=== PATIENT | female | born 2000 | race Caucasian/White ===

== ENCOUNTER → 2019-08-17 | Outpatient (CLI) | payer OTHER | END | disposition home or self-care (01) | LOC: LAB SHORT 10:59 → LAB EV 10:59 | DX: N39.0 Urinary tract infection, site not specified (principal) | CPT/HCPCS: 87077; 87086; 87186 ==

== ENCOUNTER 2019-08-28 14:41 | Emergency (ER) | payer OTHER ==
[~2019-08-28] VITALS: Ht 162.6 cm; Wt 54.4 kg
[2019-08-28 15:22] LABS: BASOPHILS ABSOLUTE AUTO 0.06 K/mm3 (0.00-0.23); BASOPHILS PERCENT AUTO 0 % (0-2); EOSINOPHILS PERCENT AUTO 0 % (0-6); IMMATURE GRAN ABSOLUTE AUTO 0.05 K/mm3 (0.00-0.10); IMMATURE GRAN PERCENT AUTO 0 % (0-1); LYMPHOCYTES ABSOLUTE AUTO 1.02 K/mm3 (0.84-5.20); LYMPHOCYTES PERCENT AUTO 8 % (21-46); MONOCYTES ABSOLUTE AUTO 0.52 K/mm3 (0.16-1.47); MONOCYTES PERCENT AUTO 4 % (4-13); Mean Corpuscular HGB 31.7 pg (26.0-34.0); Mean Corpuscular HGB Conc 32.6 g/dL (31.5-36.5); Mean Corpuscular Volume 97 fL (80-100); Mean Platelet Volume 8.6 fL (9.1-12.4); NEUTROPHILS ABSOLUTE AUTO 11.93 K/mm3 (1.96-9.15); NEUTROPHILS PERCENT AUTO 88 % (41-73); Platelet Count 349 K/mm3 (150-400); RDW Coefficient Variation 12.2 % (11.7-14.2); RDW Standard Deviation 43.9 fL (35.1-46.3); Red Blood Cell Count 4.42 M/mm3 (3.80-5.20); White Blood Cell Count 13.58 K/mm3 (4.00-11.30)
[2019-08-28 15:46] LABS: Alanine Aminotransfer (ALT/SGP 31 U/L (12-78); Albumin, Blood 4.5 g/dL (3.4-5.0); Albumin/Globulin Ratio 1.2 (0.8-1.8); Alk Phos 66 U/L (45-116); Anion Gap 17 mmol/L (6-16); Aspartate Aminotrans (AST/SGOT 30 U/L (12-37); Bilirubin, Total 0.5 mg/dL (0.1-1.0); Blood Urea Nitrogen 11 mg/dL (8-21); Bun/Creatinine Ratio 19.1 (12.0-20.0); CO2, Blood 15 mmol/L (21-32); Calcium, Blood 8.8 mg/dL (8.5-10.1); Chloride, Blood 102 mmol/L (98-108); Creatinine, Blood 0.58 mg/dL (0.40-1.00); Globulin, Blood 3.9 g/dL (2.2-4.0); Glomerular Filtration Rate >60 (60-); Glucose, Blood 67 mg/dL (70-99); Potassium, Blood 4.1 mmol/L (3.5-5.5); Sodium, Blood 134 mmol/L (136-145); Total Protein, Blood 8.4 g/dL (6.4-8.2)
[2019-08-28 15:56] LABS: Beta HCG, Quantitative, Serum 20851 mIU/mL (0-3)
== END 2019-08-28 18:12 | disposition home or self-care (01) ==
LOC: ER 14:41
PROVIDERS: Physician Assistant
DX: O21.8 Other vomiting complicating pregnancy (principal); O99.311 Alcohol use complicating pregnancy, first trimester; F10.10 Alcohol abuse, uncomplicated; Y90.4 Blood alcohol level of 80-99 mg/100 ml; O99.331 Smoking (tobacco) complicating pregnancy, first trimester; F17.200 Nicotine dependence, unspecified, uncomplicated; O99.341 Other mental disorders complicating pregnancy, first trimester; F41.9 Anxiety disorder, unspecified; Z3A.01 Less than 8 weeks gestation of pregnancy
CPT/HCPCS: 36415; 76801; 76817; 80053; 84702; 85025; 86900; 86901; 96374; 99285-25; G0480; J7030

== ENCOUNTER 2020-09-26 08:44 | Emergency (ER) | payer OTHER ==
[~2020-09-26] VITALS: Ht 162.6 cm; Wt 52.2 kg
[2020-09-26 09:10] LABS: Source, Urine Clean Catch
[2020-09-26 09:17] LABS: Bilirubin, Urine Neg (Neg); Blood, Urine 2+ (Neg); Glucose Qualitative, Urine Neg (Neg); Ketones, Urine 2+ (Neg); Leukocyte Esterase, Urine 1+ (Neg); Nitrite, Urine Neg (Neg); Protein, Urine 3+ (Neg); Specific Gravity, Urine 1.025 (1.003-1.022); Urobilinogen, Urine NORM (Normal)
[2020-09-26 09:24] LABS: Appearance, Urine Hazy (Clear); Color, Urine Yellow (P-Yellow)
[2020-09-26 09:24] LABS: BASOPHILS ABSOLUTE AUTO 0.07 K/mm3 (0.00-0.23); BASOPHILS PERCENT AUTO 1 % (0-2); EOSINOPHILS ABSOLUTE AUTO 0.29 K/mm3 (0.00-0.68); EOSINOPHILS PERCENT AUTO 3 % (0-6); Hematocrit 42.6 % (33.0-51.0); Hemoglobin 14.7 g/dL (11.5-16.0); IMMATURE GRAN ABSOLUTE AUTO 0.01 K/mm3 (0.00-0.10); IMMATURE GRAN PERCENT AUTO 0 % (0-1); LYMPHOCYTES PERCENT AUTO 25 % (21-46); MONOCYTES ABSOLUTE AUTO 1.11 K/mm3 (0.16-1.47); MONOCYTES PERCENT AUTO 11 % (4-13); Mean Corpuscular HGB Conc 34.5 g/dL (31.5-36.5); Mean Corpuscular Volume 96 fL (80-100); Mean Platelet Volume 8.7 fL (9.1-12.4); NEUTROPHILS ABSOLUTE AUTO 5.87 K/mm3 (1.96-9.15); NEUTROPHILS PERCENT AUTO 60 % (41-73); Platelet Count 266 K/mm3 (150-400); RDW Coefficient Variation 11.8 % (11.7-14.2); RDW Standard Deviation 41.5 fL (35.1-46.3); Red Blood Cell Count 4.45 M/mm3 (3.80-5.20); White Blood Cell Count 9.75 K/mm3 (4.00-11.30)
[2020-09-26 09:25] LABS: Mucus Mod (0-Heavy)
[2020-09-26 09:26] LABS: Bacteria Mod /hpf; Squamous Epithelial Cells Many /hpf (Few)
[2020-09-26 09:50] LABS: Alanine Aminotransfer (ALT/SGP 87 U/L (12-78); Albumin, Blood 4.8 g/dL (3.4-5.0); Albumin/Globulin Ratio 1.3 (0.8-1.8); Alk Phos 62 U/L (50-136); Anion Gap 11 mmol/L (6-16); Aspartate Aminotrans (AST/SGOT 104 U/L (12-37); Bilirubin, Total 1.1 mg/dL (0.1-1.0); Blood Urea Nitrogen 10 mg/dL (8-24); Bun/Creatinine Ratio 16.5 (12.0-20.0); CO2, Blood 23 mmol/L (21-32); Calcium, Blood 9.2 mg/dL (8.5-10.1); Chloride, Blood 106 mmol/L (98-108); Creatinine, Blood 0.61 mg/dL (0.40-1.00); Globulin, Blood 3.7 g/dL (2.2-4.0); Glomerular Filtration Rate >60 (60-); Glucose, Blood 82 mg/dL (70-99); Potassium, Blood 3.8 mmol/L (3.5-5.5); Sodium, Blood 140 mmol/L (136-145); Total Protein, Blood 8.5 g/dL (6.4-8.2)
[2020-09-26] MEDS ORDERED: Norco 5-325 Ta1 EACH PO (11:04)
[2020-09-26] MEDS ORDERED: CEPH500 PO (11:04)
== END 2020-09-26 11:19 | disposition home or self-care (01) ==
LOC: ER 08:44
PROVIDERS: Emergency Medicine; Physician Assistant
DX: N39.0 Urinary tract infection, site not specified (principal); F17.210 Nicotine dependence, cigarettes, uncomplicated
CPT/HCPCS: 36415; 74176; 80053; 81001; 81025; 85025; 87086; 96374; 96375; 99284-25; J1885; J2405

== ENCOUNTER 2020-11-29 06:19 | Emergency (ER) | payer OTHER ==
[~2020-11-29] VITALS: Ht 167.6 cm; Wt 54.4 kg
[~2020-11-29 06:19] MED LIST: CEPH500 PO; Norco 5-325 Ta1 EACH PO
== END 2020-11-29 07:00 | disposition left against medical advice (07) ==
LOC: ER 06:19
DX: R10.9 Unspecified abdominal pain (principal); Z53.21 Procedure and treatment not carried out due to patient leaving prior to being seen by health care provider

== ENCOUNTER 2020-12-02 06:03 | Emergency (ER) | payer OTHER ==
[~2020-12-02] VITALS: Ht 162.6 cm; Wt 54.4 kg
[2020-12-02] MEDS ORDERED: Naltrexone HCl50 MG PO (06:14)
[2020-12-02] MEDS ORDERED: PROZAC20 M5 PO (06:14)
[2020-12-02 07:02] LABS: BASOPHILS ABSOLUTE AUTO 0.05 K/mm3 (0.00-0.23); BASOPHILS PERCENT AUTO 1 % (0-2); EOSINOPHILS ABSOLUTE AUTO 0.22 K/mm3 (0.00-0.68); EOSINOPHILS PERCENT AUTO 3 % (0-6); Hemoglobin 12.4 g/dL (11.5-16.0); IMMATURE GRAN ABSOLUTE AUTO 0.02 K/mm3 (0.00-0.10); IMMATURE GRAN PERCENT AUTO 0 % (0-1); LYMPHOCYTES ABSOLUTE AUTO 1.63 K/mm3 (0.84-5.20); LYMPHOCYTES PERCENT AUTO 24 % (21-46); MONOCYTES ABSOLUTE AUTO 1.04 K/mm3 (0.16-1.47); MONOCYTES PERCENT AUTO 15 % (4-13); Mean Corpuscular HGB 33.7 pg (26.0-34.0); Mean Corpuscular HGB Conc 34.4 g/dL (31.5-36.5); Mean Corpuscular Volume 98 fL (80-100); NEUTROPHILS ABSOLUTE AUTO 3.89 K/mm3 (1.96-9.15); NEUTROPHILS PERCENT AUTO 57 % (41-73); Platelet Count 123 K/mm3 (150-400); RDW Coefficient Variation 11.8 % (11.7-14.2); RDW Standard Deviation 42.5 fL (35.1-46.3); Red Blood Cell Count 3.68 M/mm3 (3.80-5.20); White Blood Cell Count 6.85 K/mm3 (4.00-11.30)
[2020-12-02 07:31] LABS: Alanine Aminotransfer (ALT/SGP 189 U/L (12-78); Albumin, Blood 3.9 g/dL (3.4-5.0); Albumin/Globulin Ratio 1.1 (0.8-1.8); Alk Phos 58 U/L (50-136); Anion Gap 9 mmol/L (6-16); Aspartate Aminotrans (AST/SGOT 235 U/L (12-37); Bilirubin, Total 0.3 mg/dL (0.1-1.0); Blood Urea Nitrogen 11 mg/dL (8-24); Bun/Creatinine Ratio 14.3 (12.0-20.0); CO2, Blood 25 mmol/L (21-32); Calcium, Blood 9.3 mg/dL (8.5-10.1); Chloride, Blood 101 mmol/L (98-108); Creatinine, Blood 0.77 mg/dL (0.40-1.00); Globulin, Blood 3.5 g/dL (2.2-4.0); Glomerular Filtration Rate >60 (60-); Glucose, Blood 98 mg/dL (70-99); Potassium, Blood 3.5 mmol/L (3.5-5.5); Sodium, Blood 135 mmol/L (136-145); Total Protein, Blood 7.4 g/dL (6.4-8.2)
== END 2020-12-02 08:32 | disposition home or self-care (01) ==
LOC: ER 06:03
PROVIDERS: Emergency Medicine
DX: F10.232 Alcohol dependence with withdrawal with perceptual disturbance (principal); R94.5 Abnormal results of liver function studies; F17.210 Nicotine dependence, cigarettes, uncomplicated
CPT/HCPCS: 36415; 80053; 84703; 85025; 96361; 96374; 99285-25; A9270; J2405; J7030

== ENCOUNTER 2021-11-07 15:08 | Inpatient (IN) | payer OTHER ==
[~2021-11-07] VITALS: Ht 157.5 cm; Wt 54.1 kg
[~2021-11-07 15:08] MED LIST changes: +Naltrexone HCl50 MG PO; +PROZAC20 M5 PO
[2021-11-07 18:55] LABS: BASOPHILS ABSOLUTE AUTO 0.04 K/mm3 (0.00-0.23); BASOPHILS PERCENT AUTO 0 % (0-2); EOSINOPHILS PERCENT AUTO 0 % (0-6); Hemoglobin 12.3 g/dL (11.5-16.0); IMMATURE GRAN ABSOLUTE AUTO 0.11 K/mm3 (0.00-0.10); IMMATURE GRAN PERCENT AUTO 1 % (0-1); LYMPHOCYTES PERCENT AUTO 5 % (21-46); MONOCYTES ABSOLUTE AUTO 1.26 K/mm3 (0.16-1.47); MONOCYTES PERCENT AUTO 6 % (4-13); Mean Corpuscular HGB 32.1 pg (26.0-34.0); Mean Corpuscular HGB Conc 35.1 g/dL (31.5-36.5); Mean Corpuscular Volume 91 fL (80-100); Mean Platelet Volume 9.7 fL (9.1-12.4); NEUTROPHILS ABSOLUTE AUTO 18.87 K/mm3 (1.96-9.15); NEUTROPHILS PERCENT AUTO 89 % (41-73); Platelet Count 175 K/mm3 (150-400); RDW Coefficient Variation 12.3 % (11.7-14.2); RDW Standard Deviation 41.1 fL (35.1-46.3); Red Blood Cell Count 3.83 M/mm3 (3.80-5.20); White Blood Cell Count 21.28 K/mm3 (4.00-11.30)
[2021-11-07 19:12] LABS: Albumin, Blood 4.1 g/dL (3.4-5.0); Albumin/Globulin Ratio 1.3 (0.8-1.8); Bilirubin, Total 1.5 mg/dL (0.1-1.0); Bun/Creatinine Ratio 22.7 (12.0-20.0); Calcium, Blood 9.2 mg/dL (8.5-10.1); Creatinine, Blood 0.53 mg/dL (0.40-1.00); Globulin, Blood 3.2 g/dL (2.2-4.0); Potassium, Blood 3.5 mmol/L (3.5-5.5); Total Protein, Blood 7.3 g/dL (6.4-8.2)
[2021-11-07 19:33] LABS: International Normalized Ratio 1.04; Prothrombin Time Results 10.9 Sec (9.7-11.5)
[2021-11-07 21:18] LABS: Source, Urine Clean Catch
[2021-11-07 21:21] LABS: Bilirubin, Urine Neg (Neg); Blood, Urine 2+ (Neg); Glucose Qualitative, Urine Neg (Neg); Ketones, Urine 1+ (Neg); Leukocyte Esterase, Urine Neg (Neg); Nitrite, Urine Neg (Neg); Protein, Urine 2+ (Neg); Urobilinogen, Urine NORM (Normal)
[2021-11-07 21:36] LABS: Appearance, Urine Hazy (Clear); Bacteria Mod /hpf; Color, Urine Yellow (P-Yellow); Red Blood Cells, Urine 0-2 /hpf (0-2); Squamous Epithelial Cells Many /hpf (Few); White Blood Cells, Urine 0-2 /hpf (0-5)
[2021-11-07 21:37] LABS: Mucus Light (0-Heavy)
[2021-11-07 21:40] LABS: U Amphetamine Screen Not Detected; U Barbituate Screen Not Detected; U Benzodiazapine Screen DETECTED; U Buprenorphine Screen Not Detected; U Cannabinoids Screen DETECTED; U Cocaine Screen Not Detected; U Methadone Screen Not Detected; U Methamphetamine Screen Not Detected; U Opiates Screen Not Detected; U Oxycodone Screen Not Detected; U Phencyclidine Screen Not Detected; U Propoxyphene Screen Not Detected
[2021-11-07] MEDS ORDERED: ASPI325 PO (23:13)
[2021-11-08 04:26] LABS: BASOPHILS ABSOLUTE AUTO 0.03 K/mm3 (0.00-0.23); BASOPHILS PERCENT AUTO 0 % (0-2); EOSINOPHILS ABSOLUTE AUTO 0.04 K/mm3 (0.00-0.68); EOSINOPHILS PERCENT AUTO 0 % (0-6); Hematocrit 35.1 % (33.0-51.0); Hemoglobin 11.6 g/dL (11.5-16.0); IMMATURE GRAN ABSOLUTE AUTO 0.02 K/mm3 (0.00-0.10); IMMATURE GRAN PERCENT AUTO 0 % (0-1); LYMPHOCYTES ABSOLUTE AUTO 2.18 K/mm3 (0.84-5.20); LYMPHOCYTES PERCENT AUTO 24 % (21-46); MONOCYTES ABSOLUTE AUTO 1.05 K/mm3 (0.16-1.47); MONOCYTES PERCENT AUTO 12 % (4-13); Mean Corpuscular HGB 31.5 pg (26.0-34.0); Mean Corpuscular Volume 95 fL (80-100); Mean Platelet Volume 9.9 fL (9.1-12.4); NEUTROPHILS PERCENT AUTO 63 % (41-73); Platelet Count 143 K/mm3 (150-400); RDW Coefficient Variation 12.4 % (11.7-14.2); Red Blood Cell Count 3.68 M/mm3 (3.80-5.20); White Blood Cell Count 8.92 K/mm3 (4.00-11.30)
[2021-11-08 04:50] LABS: Albumin, Blood 3.9 g/dL (3.4-5.0); Albumin/Globulin Ratio 1.3 (0.8-1.8); Bilirubin, Total 1.6 mg/dL (0.1-1.0); Bun/Creatinine Ratio 13.7 (12.0-20.0); Calcium, Blood 9.1 mg/dL (8.5-10.1); Creatinine, Blood 0.59 mg/dL (0.40-1.00); Globulin, Blood 2.9 g/dL (2.2-4.0); Potassium, Blood 3.2 mmol/L (3.5-5.5); Total Protein, Blood 6.8 g/dL (6.4-8.2)
--- NOTE | 2021-11-08 05:23 | NUR ---
SHIFT SUMMARY PT ARRIVED TO PCU FROM ED VIA ED STRETCHER AT APPROX 2300. PT AMBULATED FROM ED STRETCHER TO PCU BED W/ ASSISTANCE. PT ALERT, ORIENTED, FOLLOWS COMMANDS. SP02>90% ON RA. VSS. TACHYCARDIC OCCASIONALLY. PT DENIED PAIN. CIWA OF 11-14, SEVERE TREMORS, MILDLY DIAPHORETIC, C/O OF ITCHING. MEDICATED PER EMAR. UP TO BSC TO VOID. PROTONIX, D5, AND THIAMINE INFUSED PER EMAR. PT'S MOM CALLED DURING NOC FOR UPDATE, VERY ANXIOUS. STATED SHE WILL BE VISITING DURING DAY. PT ORIENTED TO ROOM, CALL LIGHT. CALL LIGHT IN REACH.
--- NOTE | 2021-11-08 08:15 | NUR ---
Initial Asssessment: Patient is sleeping on her prone, she awakens easily with verbal stimuli. Dr. Serrano is at bedside to perform assessment. She is alert and oriented after given time to wake up. She is tremulous with arms extended and she is diaphoretic. She denies nausea, headace, and hallucinations. HRR, ST in the low 100s, pts heart rate increases to 130s with activity. LS CTA, Biox WNL on RA. BT+, abd non-tender to palpation. VSS. CIWA 8 this AM, pt given po librium. Patient drinks 1/5 whisky daily, last drink 11/06. Patient denies other needs at this time. Call light in reach, will continue to monitor.
--- NOTE | 2021-11-08 12:15 | NUR ---
Update: VSS. Patient is resting with eyes closed, resp e/u. CIWA 4 currently. Call light in reach. TM.
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
[2021-11-09 02:36] LABS: Albumin, Blood 4.3 g/dL (3.4-5.0); Albumin/Globulin Ratio 1.3 (0.8-1.8); Bilirubin, Total 0.8 mg/dL (0.1-1.0); Bun/Creatinine Ratio 14.1 (12.0-20.0); Calcium, Blood 9.5 mg/dL (8.5-10.1); Creatinine, Blood 0.57 mg/dL (0.40-1.00); Globulin, Blood 3.3 g/dL (2.2-4.0); Magnesium, Blood 1.9 mg/dL (1.6-2.4); Phosphorus, Blood 2.7 mg/dL (2.5-4.9); Potassium, Blood 2.7 mmol/L (3.5-5.5); Total Protein, Blood 7.6 g/dL (6.4-8.2)
[2021-11-09 05:57] LABS: BASOPHILS ABSOLUTE AUTO 0.04 K/mm3 (0.00-0.23); BASOPHILS PERCENT AUTO 0 % (0-2); EOSINOPHILS ABSOLUTE AUTO 0.15 K/mm3 (0.00-0.68); EOSINOPHILS PERCENT AUTO 1 % (0-6); Hematocrit 38.2 % (33.0-51.0); Hemoglobin 12.4 g/dL (11.5-16.0); IMMATURE GRAN ABSOLUTE AUTO 0.04 K/mm3 (0.00-0.10); IMMATURE GRAN PERCENT AUTO 0 % (0-1); LYMPHOCYTES ABSOLUTE AUTO 2.12 K/mm3 (0.84-5.20); LYMPHOCYTES PERCENT AUTO 20 % (21-46); MONOCYTES ABSOLUTE AUTO 0.79 K/mm3 (0.16-1.47); MONOCYTES PERCENT AUTO 8 % (4-13); Mean Corpuscular HGB Conc 32.5 g/dL (31.5-36.5); Mean Corpuscular Volume 96 fL (80-100); Mean Platelet Volume 9.9 fL (9.1-12.4); NEUTROPHILS ABSOLUTE AUTO 7.42 K/mm3 (1.96-9.15); NEUTROPHILS PERCENT AUTO 70 % (41-73); Platelet Count 141 K/mm3 (150-400); RDW Coefficient Variation 12.1 % (11.7-14.2); RDW Standard Deviation 42.5 fL (35.1-46.3); White Blood Cell Count 10.56 K/mm3 (4.00-11.30)
--- NOTE | 2021-11-09 06:41 | NUR ---
SHIFT SUMMARY NO ACUTE CHANGES THIS SHIFT. PT A&OX4. SP02>90% ON RA, VSS. PT DENIED PAIN. CIWAS AVG 5-7. PT UP INDEPENDENTLY TO BATHROOM TO VOID. PT REQUESTED AC IV TO BE PULLED D/T DISCOMFORT. NEW IV WAS DIFFICULT PLACEMENT, MULTIPLE TRIES AND STAFF TO OBTAIN NEW IV. FLUIDS NOW INFUSING PER EMAR. LIBRIUM GIVEN X2 THIS SHIFT, PO ATIVAN X1. CALL LIGHT IN REACH. PT SLEEPING IN ROOM CURRENTLY.
--- NOTE | 2021-11-09 08:20 | NUR ---
NURSING PCU DAYSHIFT: Assumed care of pt at approx 0700. A/O, mildly anxious and agitated at times but quite cooperative w/care. Skin is diaphoretic, no breakdown noted. Mildly tremulous and noted general weakness though remains able to ambulate and perform ADLs independently. Current CIWA 8. Tele in place, SR w/HR 70-80's, no c/o CP/pressure, SBP 127, no noted edema. L/S cta t/o, O2 sat 99% on RA, denies dyspnea, no noted cough. Abd SNT, BT+, denies nausea, voiding w/o difficulty per pt. PIV x1, LR infusing at 100cc/hr, K+ rider infusing as ordered. Pt denies any current needs or questions regarding plan of care. Call light in reach and pt demonstrated ability to use w/o difficulty. No s/s of acute distress at this time, cont to monitor until rpt is given to NOC RN.
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
--- NOTE | 2021-11-09 16:36 | NUR ---
NURSING PCU DAYSHIFT SUMMARY: No changes noted t/o the shift. Respiratory and cardiac status remain stable. Seen by PMD, new d/o received. Pt has remained independent in to room w/o difficulty. CIWA stable w/25 mg librium administered x1. IVF continues to infuse as ordered. Pt s/o at bedside earlier in day at which time pt appeared to be in good spirits. Pastoral care also at bedside w/pt. Pt denies any current needs or questions. Call light in reach, cont to monitor until rpt is given to accepting RN.
--- NOTE | 2021-11-10 06:00 | NUR ---
SHIFT SUMMARY PT ALERT AND ORIENTED X4. CIWAS UNDER 5 ENTIRE NIGHT. AFEBRILE. HR SR 60-80'S. BP STABLE. ON RA SATS OVER 98%. ONE EPISODE OF TACHYCARDIA INTO 160'S WHILE RUSHING TO AMBULATE TO THE BATHROOM. DENIES PAIN OR DISCOMFORT. LR INFUSING. CALLS APPROPRIATELY. IN BED RESTING WITH CALL ALARM AT SIDE, WILL CONTINUE TO MONITOR UNTIL REPORT GIVEN TO DAYSHIFT RN
--- NOTE | 2021-11-10 09:34 | NUR ---
CARE ASSUMPTION THIS RN ASSUMEC CARE FROM KELLIE LUX AT 0700. VSS. TELE SR 76. PATIENT IS ALERT AND ORIENTED X4. PERRLA. NEURO IS INTACT. CIWA 0 THIS AM. PATIENT HAS NO TREMORS. PATIENT REPORTS NO PAIN. PATIENT REPORTS NO CHEST PAIN/PRESSURE. STRONG PULSES. CAP REFILL <3SECONDS. PATIENT REPROTS NO SHORTNESS OF BREATH. CLEAR LUNG SOUNDS. ABD SOFT NONTENDR AND ACTIVE. SKIN IS CLEAR DRY AND INTACT. PATIENT IS INDEPDENT IN THE ROOM, NORMAL STRENGTH. SEE SHIFT ASSESSMENT FOR FURTHER DETAILS. PATIENT USES CALL LIGHT APPROPRITATELY AND CALLS IF NEEDING ASSISTANCE. PATIENT EXPRESSED DESIRE TO GO HOME TODAY, AND THAT SHE IS INTERESTED AND WANTING TO GO TO AA MEETINGS AND HER BOYFRIEND WANTS TO WELL. SHE STATED " I DO NOT WANT TO GO THROUG WITHDRAWAL AGAIN, AND RECEIVE THE NECESSARY TREATMENT AND HELP TO PREVENT THIS.". THIS RN USED THERPUETIC COMMUNICATION AND ACTIVE LISTENING WHEN DISCUSSING AND HEARING PATIENTS PLAN. PLAN OF CARE IS UP TO DATE AT THIS TIME. CALL LIGHT IS [place].
[2021-11-10] MEDS ORDERED: FOLI1 PO (11:01)
[2021-11-10] MEDS ORDERED: DAILY-VITE1 EACH PO (11:11)
[2021-11-10] MEDS ORDERED: PANT20 PO (11:11)
[2021-11-10] MEDS ORDERED: POTCHL20ER PO (11:12)
[2021-11-10] MEDS ORDERED: B-1100 M1 PO (11:12)
[2021-11-10] MEDS ORDERED: DISU250 PO (11:13)
--- NOTE | 2021-11-10 12:06 | NUR ---
DISCHARGE THIS RN EDUCATED THE PATIENT ON DISCHARGE MEDICATIONS. THIS RN PROVIDED HANDOUTS TO THE PATIENT WITH MEDICATION INFORMATION. THIS RN EDUCATED THE PATIENT ON FOLLOW UP APPOINTMENT WITH PRIMARY CARE PROVIDER AND PATIENT VERABLIZED UNDERSTANDING. PATIENT TAUGHT THE INFORMATION BACK TO THIS RN. PATIENT IS VERY MOTIVATED AND STATED GOING TO AN AA MEETING THIS EVENING. PATIENT WALKED OUT IN NO DISTRESS. ALL BELONGINGS WITH THE PATIENT.
== END 2021-11-10 11:42 | disposition home or self-care (01) | DRG 897 ==
LOC: ER 15:08 → PCU 20:29
PROVIDERS: Emergency Medicine; Hospitalist; Student in an Organized Health Care Education/Training Program; ADMIT Internal Medicine
PROC: HZ2ZZZZ Detoxification Services for Substance Abuse Treatment (ICD-10-PCS; principal; 2021-11-07)
DX: F10.239 Alcohol dependence with withdrawal, unspecified (principal); R44.0 Auditory hallucinations; R25.1 Tremor, unspecified; F17.210 Nicotine dependence, cigarettes, uncomplicated; R11.2 Nausea with vomiting, unspecified; E87.6 Hypokalemia; D69.59 Other secondary thrombocytopenia; R44.1 Visual hallucinations; Z79.899 Other long term (current) drug therapy
CPT/HCPCS: 36415; 80053; 81001; 81025; 82272; 83690; 83735; 84100; 85025; 85610; 86850; 86900; 86901; 87086; 93005; 93010; 96365; 96366; 96375; 96376; 99285-25; A9270; C9113; J1650; J2060; J3411; J3480; J7042; J7050; J7120

== ENCOUNTER 2022-01-10 17:39 | Inpatient (IN) | payer OTHER ==
[~2022-01-10] VITALS: Ht 162.6 cm; Wt 54.4 kg
[~2022-01-10 17:39] MED LIST changes: +ASPI325 PO; +B-1100 M1 PO; +DAILY-VITE1 EACH PO; +DISU250 PO; +FOLI1 PO; +PANT20 PO; +POTCHL20ER PO; -PROZAC20 M5 PO; +Prozac20 MG PO
[2022-01-10 18:40] LABS: BASOPHILS ABSOLUTE AUTO 0.03 K/mm3 (0.00-0.23); BASOPHILS PERCENT AUTO 0 % (0-2); EOSINOPHILS ABSOLUTE AUTO 0.01 K/mm3 (0.00-0.68); EOSINOPHILS PERCENT AUTO 0 % (0-6); Hematocrit 42.4 % (33.0-51.0); Hemoglobin 14.8 g/dL (11.5-16.0); IMMATURE GRAN ABSOLUTE AUTO 0.05 K/mm3 (0.00-0.10); IMMATURE GRAN PERCENT AUTO 0 % (0-1); LYMPHOCYTES ABSOLUTE AUTO 1.59 K/mm3 (0.84-5.20); LYMPHOCYTES PERCENT AUTO 12 % (21-46); MONOCYTES ABSOLUTE AUTO 0.86 K/mm3 (0.16-1.47); MONOCYTES PERCENT AUTO 7 % (4-13); Mean Corpuscular HGB 31.2 pg (26.0-34.0); Mean Corpuscular HGB Conc 34.9 g/dL (31.5-36.5); Mean Corpuscular Volume 89 fL (80-100); Mean Platelet Volume 9.2 fL (9.1-12.4); NEUTROPHILS ABSOLUTE AUTO 10.52 K/mm3 (1.96-9.15); NEUTROPHILS PERCENT AUTO 81 % (41-73); Platelet Count 182 K/mm3 (150-400); RDW Coefficient Variation 11.9 % (11.7-14.2); RDW Standard Deviation 38.6 fL (35.1-46.3); Red Blood Cell Count 4.75 M/mm3 (3.80-5.20); White Blood Cell Count 13.06 K/mm3 (4.00-11.30)
[2022-01-10 18:58] LABS: Acetaminophen, Random <2.0 ug/mL (10.0-30.0); Alanine Aminotransfer (ALT/SGP 49 U/L (12-78); Albumin, Blood 4.4 g/dL (3.4-5.0); Albumin/Globulin Ratio 1.3 (0.8-1.8); Alk Phos 109 U/L (50-136); Anion Gap 17 mmol/L (6-16); Aspartate Aminotrans (AST/SGOT 86 U/L (12-37); Bilirubin, Total 0.9 mg/dL (0.1-1.0); Blood Urea Nitrogen 15 mg/dL (8-24); Bun/Creatinine Ratio 23.8 (12.0-20.0); CO2, Blood 19 mmol/L (21-32); Calcium, Blood 9.5 mg/dL (8.5-10.1); Chloride, Blood 97 mmol/L (98-108); Creatinine, Blood 0.63 mg/dL (0.40-1.00); Ethanol (Alcohol), Blood, Med <3 mg/dL; Globulin, Blood 3.5 g/dL (2.2-4.0); Glomerular Filtration Rate 129 (60-); Glucose, Blood 123 mg/dL (70-99); Potassium, Blood 3.8 mmol/L (3.5-5.5); Salicylate <1.7 mg/dL (2.8-20.0); Sodium, Blood 133 mmol/L (136-145); Total Protein, Blood 7.9 g/dL (6.4-8.2)
[2022-01-10 20:50] LABS: International Normalized Ratio 1.11; Prothrombin Time Results 11.6 Sec (9.7-11.5)
[2022-01-10 22:04] LABS: Source, Urine Clean Catch
[2022-01-10 22:06] LABS: Bilirubin, Urine Neg (Neg); Blood, Urine 3+ (Neg); Glucose Qualitative, Urine Neg (Neg); Ketones, Urine 4+ (Neg); Leukocyte Esterase, Urine 3+ (Neg); Nitrite, Urine Neg (Neg); Protein, Urine 3+ (Neg); Specific Gravity, Urine 1.025 (1.003-1.022); Urobilinogen, Urine NORM (Normal)
[2022-01-10 22:12] LABS: Appearance, Urine Cloudy (Clear); Color, Urine Yellow (P-Yellow)
[2022-01-10 22:13] LABS: Amorphous Mod (0-Heavy); Bacteria Mod /hpf; Hyaline Casts 0-2 /lpf (0-2); Mucus Light (0-Heavy); Squamous Epithelial Cells Mod /hpf (Few); White Blood Cells, Urine 25-50 /hpf (0-5)
[2022-01-10 22:18] LABS: U Amphetamine Screen Not Detected; U Barbituate Screen Not Detected; U Benzodiazapine Screen DETECTED; U Buprenorphine Screen Not Detected; U Cannabinoids Screen DETECTED; U Cocaine Screen Not Detected; U Methadone Screen Not Detected; U Methamphetamine Screen Not Detected; U Opiates Screen Not Detected; U Oxycodone Screen Not Detected; U Phencyclidine Screen Not Detected; U Propoxyphene Screen Not Detected
[2022-01-11 04:36] LABS: BASOPHILS ABSOLUTE AUTO 0.03 K/mm3 (0.00-0.23); BASOPHILS PERCENT AUTO 0 % (0-2); EOSINOPHILS ABSOLUTE AUTO 0.02 K/mm3 (0.00-0.68); EOSINOPHILS PERCENT AUTO 0 % (0-6); Hematocrit 35.9 % (33.0-51.0); Hemoglobin 12.2 g/dL (11.5-16.0); IMMATURE GRAN ABSOLUTE AUTO 0.04 K/mm3 (0.00-0.10); IMMATURE GRAN PERCENT AUTO 0 % (0-1); LYMPHOCYTES PERCENT AUTO 19 % (21-46); MONOCYTES ABSOLUTE AUTO 1.93 K/mm3 (0.16-1.47); MONOCYTES PERCENT AUTO 15 % (4-13); Mean Corpuscular Volume 91 fL (80-100); Mean Platelet Volume 9.7 fL (9.1-12.4); NEUTROPHILS ABSOLUTE AUTO 8.64 K/mm3 (1.96-9.15); NEUTROPHILS PERCENT AUTO 66 % (41-73); Platelet Count 145 K/mm3 (150-400); RDW Coefficient Variation 12.1 % (11.7-14.2); RDW Standard Deviation 40.2 fL (35.1-46.3); Red Blood Cell Count 3.93 M/mm3 (3.80-5.20); White Blood Cell Count 13.16 K/mm3 (4.00-11.30)
[2022-01-11 04:52] LABS: Bun/Creatinine Ratio 21.8 (12.0-20.0); Calcium, Blood 8.1 mg/dL (8.5-10.1); Creatinine, Blood 0.51 mg/dL (0.40-1.00); Potassium, Blood 2.8 mmol/L (3.5-5.5)
--- NOTE | 2022-01-11 17:13 | NUR ---
SHIFT SUMMARY PT IS A&OX4 AND PLEASANT. PT IS INDEPENDENT IN ROOM. CIWA SCORES HAVE BEEN 7 AND 5's. PT HAS HAD NO C/O OF N/V. PT COMPLAINED OF PAIN IN THE LEFT ABD. MEDICATED X1 PER EMAR. BOYFRIEND AT BEDSIDE. BED IN LOWEST POSITION AND CALL LIGHT IN REACH.
--- NOTE | 2022-01-12 04:58 | NUR ---
SHIFT SUMMARY ASSUMED CARE OF PT AT 1900. PT IS A/OX4. HEART SOUNDS REGULAR. LUNG SOUNDS CLEAR. PT IS INDEPENDENT TO BATHROOM. PT CIWAH WAS 7 LAST NIGHT AND 10 THIS AM. MEDICATED PER EMAR. PT HAS NO NEW COMPLAINTS.
[2022-01-12 06:22] LABS: BASOPHILS ABSOLUTE AUTO 0.03 K/mm3 (0.00-0.23); BASOPHILS PERCENT AUTO 0 % (0-2); EOSINOPHILS ABSOLUTE AUTO 0.12 K/mm3 (0.00-0.68); EOSINOPHILS PERCENT AUTO 2 % (0-6); Hematocrit 38.6 % (33.0-51.0); Hemoglobin 12.7 g/dL (11.5-16.0); IMMATURE GRAN ABSOLUTE AUTO 0.02 K/mm3 (0.00-0.10); IMMATURE GRAN PERCENT AUTO 0 % (0-1); LYMPHOCYTES PERCENT AUTO 36 % (21-46); MONOCYTES ABSOLUTE AUTO 0.97 K/mm3 (0.16-1.47); MONOCYTES PERCENT AUTO 12 % (4-13); Mean Corpuscular HGB 30.8 pg (26.0-34.0); Mean Corpuscular HGB Conc 32.9 g/dL (31.5-36.5); Mean Corpuscular Volume 94 fL (80-100); Mean Platelet Volume 9.8 fL (9.1-12.4); NEUTROPHILS ABSOLUTE AUTO 4.09 K/mm3 (1.96-9.15); NEUTROPHILS PERCENT AUTO 50 % (41-73); Platelet Count 151 K/mm3 (150-400); RDW Coefficient Variation 12.1 % (11.7-14.2); RDW Standard Deviation 41.6 fL (35.1-46.3); Red Blood Cell Count 4.12 M/mm3 (3.80-5.20); White Blood Cell Count 8.13 K/mm3 (4.00-11.30)
[2022-01-12 06:45] LABS: Albumin, Blood 3.5 g/dL (3.4-5.0); Albumin/Globulin Ratio 1.1 (0.8-1.8); Bilirubin, Total 0.8 mg/dL (0.1-1.0); Bun/Creatinine Ratio 20.8 (12.0-20.0); Calcium, Blood 8.7 mg/dL (8.5-10.1); Creatinine, Blood 0.53 mg/dL (0.40-1.00); Globulin, Blood 3.3 g/dL (2.2-4.0); Phosphorus, Blood 3.3 mg/dL (2.5-4.9); Potassium, Blood 3.2 mmol/L (3.5-5.5); Total Protein, Blood 6.8 g/dL (6.4-8.2)
--- NOTE | 2022-01-12 17:11 | NUR ---
PT A&O X 4 AND PLEASANT. PT HAD SUDDEN ON SET OF CP IN AM. PT WAS CRYING, RESTLESS, AND CLUTCHING HER CHEST. JACKERMAN CALLED. NO HEART PROBLEMS NOTED ON EKG, CHEST XRAY, OR LABS. LAPASE ELEVATED. ENCOURAGED FLUIDS. MEDICATED PER DR ORDERS. PT SLEPT FOR SEVERAL HOURS AFTER RR. CIWA SCORES HAVE BEEN BETWEEN 3 AND 12. PT GIVEN 25 OF LIBRIUM AT [address]30[address] DR GUZMAN HAS BEEN IN TO REASSESS PT AT 1721. BED IN LOWEST POSITION AND CALL LIGHT IN REACH.
--- NOTE | 2022-01-13 06:32 | NUR ---
SHIFT SUMMARY: PATIENT IS A&OX4, VSS, SCORES AND 8 AND 0 ON ATOH WITDRAWL SCORE. LIBRIUM WAS GIVEN X1. PATIENT REQUESTED MELATONIN FOR SLEEP, MED WAS GIVEN WITH GOOD EFFECT. IVF INFUSING PER MD ORDER..
--- NOTE | 2022-01-13 18:25 | NUR ---
SHIFT SUMMARY ALERT AND ORIENTED THROUGHOUT SHIFT. INDEPENDENT IN ROOM. CIWA 8 THIS AM. LIBRIUM ONCE IN AM. TOELRATING REGULAR DIET AND LIQUIDS. SALINE LOCKED. VOIDING WELL. PLAN FOR DISCHARGE IN AM AFTER 24 HOURS WITH LOW CIWAS AND NO LIBRIUM.
--- NOTE | 2022-01-14 04:13 | NUR ---
A&Ox4. VSS. PLEASANT AND COOPERATIVE WITH CARE. C/O TACTILE DISTURBANCES AND INCREASED ANXIETY AT 2114 AT WHICH TIME LIBRIUM 25MG WAS ADMINISTERED FOR CIWA SCORE OF 14. PT STATED FEELING VERY ALONE AND SCARED; SAT AND TALKED WITH HER FOR AWHILE ABOUT HER ANXIETIES AND OFFERED EMOTIONAL SUPPORT. SUGGESTED HER BF COME STAY WITH HER FOR THE NIGHT TO WHICH HE AGREED AND WAS WITH HER WHILE SHE SLEPT UNTIL 0200. SHE REPORTS FEELING MUCH BETTER. CONTINUES TO ONLY CONSUME APPLE JUICE AND ICE CHIPS. DENIES FURTHER C/O ABD PAIN OR ANXIETY. WILL REPORT TO ONCOMING RN.
[2022-01-14 04:32] LABS: BASOPHILS ABSOLUTE AUTO 0.05 K/mm3 (0.00-0.23); BASOPHILS PERCENT AUTO 1 % (0-2); EOSINOPHILS ABSOLUTE AUTO 0.18 K/mm3 (0.00-0.68); EOSINOPHILS PERCENT AUTO 2 % (0-6); Hematocrit 40.7 % (33.0-51.0); Hemoglobin 13.3 g/dL (11.5-16.0); IMMATURE GRAN ABSOLUTE AUTO 0.02 K/mm3 (0.00-0.10); IMMATURE GRAN PERCENT AUTO 0 % (0-1); LYMPHOCYTES ABSOLUTE AUTO 2.58 K/mm3 (0.84-5.20); LYMPHOCYTES PERCENT AUTO 33 % (21-46); MONOCYTES ABSOLUTE AUTO 0.98 K/mm3 (0.16-1.47); MONOCYTES PERCENT AUTO 13 % (4-13); Mean Corpuscular HGB 31.1 pg (26.0-34.0); Mean Corpuscular HGB Conc 32.7 g/dL (31.5-36.5); Mean Corpuscular Volume 95 fL (80-100); Mean Platelet Volume 9.2 fL (9.1-12.4); NEUTROPHILS ABSOLUTE AUTO 3.92 K/mm3 (1.96-9.15); NEUTROPHILS PERCENT AUTO 51 % (41-73); Platelet Count 197 K/mm3 (150-400); RDW Coefficient Variation 12.8 % (11.7-14.2); RDW Standard Deviation 42.6 fL (35.1-46.3); Red Blood Cell Count 4.28 M/mm3 (3.80-5.20); White Blood Cell Count 7.73 K/mm3 (4.00-11.30)
[2022-01-14 04:54] LABS: Albumin, Blood 3.7 g/dL (3.4-5.0); Bilirubin, Total 0.3 mg/dL (0.1-1.0); Bun/Creatinine Ratio 18.8 (12.0-20.0); C-REACTIVE PROTEIN, EXT RANGE 0.934 mg/dL (0.000-0.300); Calcium, Blood 9.2 mg/dL (8.5-10.1); Creatinine, Blood 0.53 mg/dL (0.40-1.00); Globulin, Blood 3.7 g/dL (2.2-4.0); Phosphorus, Blood 4.2 mg/dL (2.5-4.9); Potassium, Blood 4.1 mmol/L (3.5-5.5); Total Protein, Blood 7.4 g/dL (6.4-8.2)
[2022-01-14] MEDS ORDERED: CHLO25 PO (10:35)
--- NOTE | 2022-01-14 14:11 | NUR ---
PT AOX4 AND COOPERATIVE OF CARE. PT DISCHARGE WITH BOYFRIEND TO TRANSPORT. PT EDUCATED ON BENEFITS OF STAYING SOBER. PT VERBALIZES HER WISH TO STAY SOBER AND PLAN TO WORK TOWARDS A BETTER OUT COME FOR HER HEALTH. PAPERWORK WAS GIVEN TO PT AND EDUCATIONAL MATERIAL SENT WITH HER. PT DOING WELL VERY MILD ANXIETY NO TREMORS AND DENIED ANY NAUSEA OR VISUAL PROBLEMS. PT REFUSED ESCORT OUT OF HOSPITAL.
== END 2022-01-14 13:55 | disposition home or self-care (01) | DRG 897 ==
LOC: ER 17:39 → MEDS 17:40
PROVIDERS: Emergency Medicine; Family Medicine; Hospitalist; Physician Assistant; ADMIT Internal Medicine
PROC: HZ2ZZZZ Detoxification Services for Substance Abuse Treatment (ICD-10-PCS; principal; 2022-01-12)
DX: F10.239 Alcohol dependence with withdrawal, unspecified (principal); F17.210 Nicotine dependence, cigarettes, uncomplicated; F32.A Depression, unspecified; E87.6 Hypokalemia; R56.9 Unspecified convulsions; Z88.8 Allergy status to other drugs, medicaments and biological substances; Z79.899 Other long term (current) drug therapy
CPT/HCPCS: 36415; 70450; 71045; 80048; 80053; 81001; 81025; 83690; 83735; 83880; 84100; 84484; 85025; 85610; 86140; 87086; 93005; 93010; 94760; 96361; 96372; 96374; 96375; 96376; 99285-25; A9270; C9113; G0378; G0480; J0696; J1650; J2060; J2270; J3360; J3411; J3475; J7030; J7042; J7120

== ENCOUNTER 2022-02-26 14:30 | Inpatient (IN) | payer OTHER ==
[~2022-02-26] VITALS: Ht 162.6 cm; Wt 51.6 kg
[~2022-02-26 14:30] MED LIST changes: +CHLO25 PO
[2022-02-26 15:42] LABS: BASOPHILS ABSOLUTE AUTO 0.12 K/mm3 (0.00-0.23); BASOPHILS PERCENT AUTO 1 % (0-2); EOSINOPHILS ABSOLUTE AUTO 0.02 K/mm3 (0.00-0.68); EOSINOPHILS PERCENT AUTO 0 % (0-6); Hematocrit 45.2 % (33.0-51.0); Hemoglobin 14.7 g/dL (11.5-16.0); IMMATURE GRAN ABSOLUTE AUTO 0.06 K/mm3 (0.00-0.10); IMMATURE GRAN PERCENT AUTO 1 % (0-1); LYMPHOCYTES ABSOLUTE AUTO 1.95 K/mm3 (0.84-5.20); LYMPHOCYTES PERCENT AUTO 15 % (21-46); MONOCYTES ABSOLUTE AUTO 0.56 K/mm3 (0.16-1.47); MONOCYTES PERCENT AUTO 4 % (4-13); Mean Corpuscular HGB 30.4 pg (26.0-34.0); Mean Corpuscular HGB Conc 32.5 g/dL (31.5-36.5); Mean Corpuscular Volume 93 fL (80-100); Mean Platelet Volume 8.4 fL (9.1-12.4); NEUTROPHILS ABSOLUTE AUTO 10.16 K/mm3 (1.96-9.15); NEUTROPHILS PERCENT AUTO 79 % (41-73); Platelet Count 409 K/mm3 (150-400); RDW Coefficient Variation 13.3 % (11.7-14.2); RDW Standard Deviation 45.1 fL (35.1-46.3); Red Blood Cell Count 4.84 M/mm3 (3.80-5.20); White Blood Cell Count 12.87 K/mm3 (4.00-11.30)
[2022-02-26 15:54] LABS: Acetaminophen, Random 6.6 ug/mL (10.0-30.0); Salicylate 1.8 mg/dL (2.8-20.0)
[2022-02-26 16:07] LABS: Albumin, Blood 4.3 g/dL (3.4-5.0); Albumin/Globulin Ratio 1.2 (0.8-1.8); Bilirubin, Total 0.3 mg/dL (0.1-1.0); Bun/Creatinine Ratio 23.3 (12.0-20.0); Calcium, Blood 9.1 mg/dL (8.5-10.1); Creatinine, Blood 0.56 mg/dL (0.40-1.00); Globulin, Blood 3.6 g/dL (2.2-4.0); Total Protein, Blood 7.9 g/dL (6.4-8.2)
[2022-02-26 16:33] LABS: Influenza A, PCR NEGATIVE (NEGATIVE); Influenza B, PCR NEGATIVE (NEGATIVE); Resp Syncytial Virus, PCR NEGATIVE (NEGATIVE); SARS-Cov-2 (COVID-19) PCR, MMC NEGATIVE (NEGATIVE)
[2022-02-26 18:23] LABS: Source, Urine Clean Catch
[2022-02-26 18:48] LABS: Appearance, Urine Turbid (Clear); Bilirubin, Urine Neg (Neg); Blood, Urine 5+ (Neg); Color, Urine Yellow (P-Yellow); Glucose Qualitative, Urine Neg (Neg); Ketones, Urine 4+ (Neg); Leukocyte Esterase, Urine 3+ (Neg); Nitrite, Urine Neg (Neg); Protein, Urine 3+ (Neg); Urobilinogen, Urine NORM (Normal)
[2022-02-26 19:43] LABS: Red Blood Cells, Urine 50-100 /hpf (0-2); Squamous Epithelial Cells Many /hpf (Few); White Blood Cells, Urine TNTC /hpf (0-5)
[2022-02-26 19:44] LABS: Bacteria Many /hpf; Mucus Mod (0-Heavy)
[2022-02-26 19:57] LABS: U Amphetamine Screen Not Detected; U Barbituate Screen Not Detected; U Benzodiazapine Screen DETECTED; U Buprenorphine Screen Not Detected; U Cannabinoids Screen DETECTED; U Cocaine Screen Not Detected; U Methadone Screen Not Detected; U Methamphetamine Screen Not Detected; U Opiates Screen Not Detected; U Oxycodone Screen Not Detected; U Phencyclidine Screen Not Detected; U Propoxyphene Screen Not Detected
[2022-02-27 11:01] LABS: Source, Urine Clean Catch
[2022-02-27 11:05] LABS: Bilirubin, Urine Neg (Neg); Blood, Urine 2+ (Neg); Color, Urine Yellow (P-Yellow); Glucose Qualitative, Urine Neg (Neg); Ketones, Urine 4+ (Neg); Leukocyte Esterase, Urine 3+ (Neg); Nitrite, Urine Neg (Neg); Protein, Urine 1+ (Neg); Specific Gravity, Urine 1.025 (1.003-1.022); Urobilinogen, Urine NORM (Normal)
[2022-02-27 11:22] LABS: Appearance, Urine Hazy (Clear)
[2022-02-27 11:23] LABS: Bacteria Few /hpf; Squamous Epithelial Cells Few /hpf (Few)
--- NOTE | 2022-02-27 17:56 | NUR ---
SHIFT SUMMARY; ASSUMED CARE FROM ER. A/A/OX4, TREMULOUS WITH MOIST SKIN ON ARRIVAL. MEDICATED PER CIWA. AMBULATES TO RESTROOM WITHOUT DIFFICULTY, REPOSITIONS SELF ON GURNEY. ROOM MIDIGATED AND PT IN PAPER SCRUBS, SITTER AT BEDSIDE. DENIES SUICIDE PLAN AT THIS TIME AND REPORTS DRINKING A 5TH OF WHISKEY PER DAY AND HX OF DT'S. REPORTS WANTING TO STOP DRINKING AND HAS ATTEMPTED BEFORE. VOLUNATRY HOLD. CIWA 3-7. WILL CONTINUE TO MONITOR AND TREAT UNTIL CHANGE OF SHIFT.
[2022-02-28 06:40] LABS: BASOPHILS ABSOLUTE AUTO 0.05 K/mm3 (0.00-0.23); BASOPHILS PERCENT AUTO 1 % (0-2); EOSINOPHILS ABSOLUTE AUTO 0.37 K/mm3 (0.00-0.68); EOSINOPHILS PERCENT AUTO 4 % (0-6); Hematocrit 39.9 % (33.0-51.0); Hemoglobin 13.3 g/dL (11.5-16.0); IMMATURE GRAN ABSOLUTE AUTO 0.02 K/mm3 (0.00-0.10); IMMATURE GRAN PERCENT AUTO 0 % (0-1); LYMPHOCYTES PERCENT AUTO 24 % (21-46); MONOCYTES ABSOLUTE AUTO 0.95 K/mm3 (0.16-1.47); MONOCYTES PERCENT AUTO 10 % (4-13); Mean Corpuscular HGB 30.5 pg (26.0-34.0); Mean Corpuscular HGB Conc 33.3 g/dL (31.5-36.5); Mean Corpuscular Volume 92 fL (80-100); Mean Platelet Volume 9.1 fL (9.1-12.4); NEUTROPHILS ABSOLUTE AUTO 5.59 K/mm3 (1.96-9.15); NEUTROPHILS PERCENT AUTO 61 % (41-73); Platelet Count 291 K/mm3 (150-400); RDW Standard Deviation 42.9 fL (35.1-46.3); Red Blood Cell Count 4.36 M/mm3 (3.80-5.20); White Blood Cell Count 9.18 K/mm3 (4.00-11.30)
[2022-02-28 06:57] LABS: Albumin, Blood 3.9 g/dL (3.4-5.0); Anion Gap 10 mmol/L (6-16); Blood Urea Nitrogen 9 mg/dL (8-24); Bun/Creatinine Ratio 17.3 (12.0-20.0); CO2, Blood 27 mmol/L (21-32); Calcium, Blood 9.1 mg/dL (8.5-10.1); Chloride, Blood 101 mmol/L (98-108); Creatinine, Blood 0.52 mg/dL (0.40-1.00); Glomerular Filtration Rate 135 (60-); Glucose, Blood 76 mg/dL (70-99); Magnesium, Blood 1.7 mg/dL (1.6-2.4); Phosphorus, Blood 4.6 mg/dL (2.5-4.9); Potassium, Blood 3.5 mmol/L (3.5-5.5); Sodium, Blood 138 mmol/L (136-145)
--- NOTE | 2022-02-28 07:34 | NUR ---
SHIFT SUMMARY: PT IS A&OX4. ABLE TO MAKES NEEDS KNOWN. CIWAH SCORES BETWEEN 4-14, RESPONDS WELL TO PO MEDICATIONS, SEE EMAR. PT COMPLAINS OF PAIN IN LUQ OR ABDOMEN, STATES THIS OCCURS WHEN HE WITHDRAWL SYMPTOMS GET WORSE. HEATING PAD PROVIDED FOR PAIN WITH GOOD RESULTS. VSS. DENIES ANY SUICIDAL THOUGHTS DURING THIS SHIFT. 1:1 SITTER PRESENT AT BEDSIDE THROUGHOUT SHIFT.
--- NOTE | 2022-02-28 11:10 | NUR ---
Susie is alert, oriented, pleasant, slighty anxious. CIWA score after receiving 50 mg Librium around 0730 this morning is now 1. States that she feels like the medication has taken away the symptoms which she reported to the charge aide Tammie. Heart rate 96 bpm at rest, with smallest amount of self repositioning in bed it increases to 102-122 bpm. She was given clear liquids: ice water, and popscicle this morning at her request. States that she doesn't much feel like eating due to her left upper abdominal pain increasing whenever she eats anything.
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
--- NOTE | 2022-02-28 15:57 | NUR ---
Pt states that she is doing much better. Provided ice with spoon and popscicle for her.
--- NOTE | 2022-02-28 17:52 | NUR ---
Very anxious, tearful, after eating dinner states that she feels nauseated, like she is going to pass out, and shaky. Her boyfriend is also at the bedside. Given librium at previous dose which has been helping her very much today.
--- NOTE | 2022-02-28 23:56 | NUR ---
PT STATES SHE IS NOT ACTIVELY HAVING SI AT THIS TIME. NO ANXIETY MEDS NEEDED AT THIS TIME WILL CONTINUE TO MONITOR
--- NOTE | 2022-03-01 04:22 | NUR ---
PT SLEEPING MOST OF NIGNT. TRYING TO ENCOURAGE SLEEP SINCE PT DID NOT SLEEP WELL THE PREVIOUS NIGHT. CIWA SCORING FOR ANXIETY, SWEATS, ITCHY SKIN, AND SLIGHT TREMORS. LIBRIUM GIVEN X1 SO FAR. WCTM. VSS. NO OTHER ISSUES TONIGHT. SITTING STILL IN ROOM. NO SI EXPRESSED BY PT TONIGHT. WCTM.
--- NOTE | 2022-03-01 12:48 | NUR ---
Awaiting reassessment by Dr. Cha. Dr. Shore states that he spoke with the psychiatrist.
--- NOTE | 2022-03-01 13:22 | NUR ---
Pt states symptoms suddenly returned. Reports sweats, "tracers" when she looks around, lightheadedness, and visible tremors are noted. Given librium 50 mg as ordered prn.
--- NOTE | 2022-03-01 14:21 | NUR ---
Pt states that she feels very discouraged after having a phone call regarding a job application which she had placed. States physically she feels better, but emotionally she thinks that she would be better off at a rehab center instead. Call to Dr. Shore regarding increased amplitude in QRS complex, per ambulance driver tech at this time. Patches were changed, and the doctor said that he would come to see.
--- NOTE | 2022-03-01 15:07 | NUR ---
Spiritual Care Visit. Pt. is sitting up in bed and welcomes my visit. 1:1 sitter is present. Pt. is unsettled by a recent phone call from a job placement firm. Listen empathetically with a calming presence. Re-establish rapport. Pt. displays evidence of reduced stress. Prayed with Pt. Pt. verbalized gratitude for the spiritual care visit. Will remain available.
[2022-03-01] MEDS ORDERED: HYDHCL25 PO (18:03)
--- NOTE | 2022-03-01 20:56 | NUR ---
CARE ASSUMPTION: PATIENT SITTING IN BED WATCHING TV. A&O X4, DENIES PAIN/SOB, CIWAS 2-4. EXPRESSES GRATITUDE TO HAVE HER THINGS BACK AND STATES JOURNALLING IS VERY IMPORTANT TO HER SO SHE IS GLAD TO BE ABLE TO DO THAT AGAIN. STATES CONCERN REGARDING LACK OF BM IN 3 DAYS - RECEIVING INTERVENTION MEDICATIONS. MEDICATED PER EMAR. BED LOW WITH CALL LIGHT IN REACH.
--- NOTE | 2022-03-02 05:24 | NUR ---
SHIFT SUMMARY: PATIENT DENIES SI AT THIS TIME. CIWAS 2-14. MEDICATED PER EMAR. PATIENT HAS INTERMITTENT CRAMPING OF STOMACH SHE STATES HAS BEEN OCCURRING INTERMITTENTLY FOR 6 MONTHS. BOWEL REGIMENT STARTED R/T CONSTIPATION. SR-ST ON MONITOR, OTHER VS WNL. INDEPENDENT IN ROOM. DID NOT SLEEP WELL - ENDORSED DISCOMFORT. BED LOW WITH CALL LIGHT IN REACH. COOPERATIVE WITH CARE, ANXIOUS AT TIMES. WILL CONTINUE TO MONITOR UNTIL REPORT TO DAY RN.
[2022-03-02 08:19] LABS: BASOPHILS ABSOLUTE AUTO 0.05 K/mm3 (0.00-0.23); BASOPHILS PERCENT AUTO 1 % (0-2); EOSINOPHILS ABSOLUTE AUTO 0.42 K/mm3 (0.00-0.68); EOSINOPHILS PERCENT AUTO 6 % (0-6); IMMATURE GRAN ABSOLUTE AUTO 0.02 K/mm3 (0.00-0.10); IMMATURE GRAN PERCENT AUTO 0 % (0-1); LYMPHOCYTES ABSOLUTE AUTO 2.26 K/mm3 (0.84-5.20); LYMPHOCYTES PERCENT AUTO 30 % (21-46); MONOCYTES ABSOLUTE AUTO 0.87 K/mm3 (0.16-1.47); MONOCYTES PERCENT AUTO 11 % (4-13); Mean Corpuscular HGB 30.2 pg (26.0-34.0); Mean Corpuscular HGB Conc 32.6 g/dL (31.5-36.5); Mean Corpuscular Volume 93 fL (80-100); Mean Platelet Volume 9.5 fL (9.1-12.4); NEUTROPHILS ABSOLUTE AUTO 3.98 K/mm3 (1.96-9.15); NEUTROPHILS PERCENT AUTO 52 % (41-73); Platelet Count 227 K/mm3 (150-400); RDW Coefficient Variation 12.9 % (11.7-14.2); RDW Standard Deviation 44.2 fL (35.1-46.3); Red Blood Cell Count 4.63 M/mm3 (3.80-5.20)
[2022-03-02 08:38] LABS: Alanine Aminotransfer (ALT/SGP 37 U/L (12-78); Albumin/Globulin Ratio 1.2 (0.8-1.8); Alk Phos 87 U/L (50-136); Anion Gap 9 mmol/L (6-16); Aspartate Aminotrans (AST/SGOT 36 U/L (12-37); Bilirubin, Direct 0.1 mg/dL (0.0-0.3); Bilirubin, Indirect 0.5 mg/dL (0.1-0.7); Bilirubin, Total 0.6 mg/dL (0.1-1.0); Blood Urea Nitrogen 14 mg/dL (8-24); Bun/Creatinine Ratio 24.3 (12.0-20.0); CO2, Blood 24 mmol/L (21-32); Calcium, Blood 9.5 mg/dL (8.5-10.1); Chloride, Blood 103 mmol/L (98-108); Creatinine, Blood 0.58 mg/dL (0.40-1.00); Globulin, Blood 3.4 g/dL (2.2-4.0); Glomerular Filtration Rate 131 (60-); Glucose, Blood 93 mg/dL (70-99); Magnesium, Blood 2.1 mg/dL (1.6-2.4); Phosphorus, Blood 4.8 mg/dL (2.5-4.9); Potassium, Blood 3.7 mmol/L (3.5-5.5); Sodium, Blood 136 mmol/L (136-145); Total Protein, Blood 7.4 g/dL (6.4-8.2)
--- NOTE | 2022-03-02 08:51 | NUR ---
Spiritual Care - Nurse Request. At the end of my shift last evening, received a message from nurse Arevalo that Pt. would be allowed to have [employer] set. Delivered material first thing this morning. Pt. is sleeping. Left material on her table. Will [place] back to visit later in the day.
--- NOTE | 2022-03-02 12:02 | NUR ---
Pt. is awake, sitting up in bed and coloring. Pt. welcomes my visit and verbalizes gratitude for the gift of the book and colored pencils. Pt. is pleasant and displays evidence of being encouraged. Pt. verbalized the prognosis given by Dr. Parsons. Pt. verbalized her openness to pursue [facility] locally after she is discharged. Prayed with Pt. Pt. verbalized gratitdue for the spiritual care visit.
--- NOTE | 2022-03-02 18:20 | NUR ---
Shift Summary Pt has been resting quietly in room. Pt has been emotional and on the verge of tears at all interactions. Pt has c/o stomach discomfort, they were given their ordered miralax in apple juice and slowly sipped it over the course of five hours. Pt was encouraged to drink medication over a shorter time (20-30 minutes) and they stated that they would try. Pt c/o abdominal discomfort and requested this RN to obtain "something stronger" from the provider. Vital signs stable.
--- NOTE | 2022-03-03 04:55 | NUR ---
SHIFT SUMMARY: PT ALERT AND ORIENTED X4, BP AND HR STABLE, AFEBRILE, SATING >98% ON RA. PT COOPERATIVE AND CALM THROUGHOUT THE NIGHT. PT STATED HAVING MILD ANXIETY AT START OF SHIFT, MEDICATED PER EMAR. NO COMPLAINTS OF ABD PAIN, NAUSEA, OR VOMITING. IND TO BATHROOM. SLEPT THROUGHOUT A MAJORITY OF THE NIGHT. BED IN LOW, CALL LIGHT IN REACH, WILL REPORT TO ONCOMING RN.
--- NOTE | 2022-03-03 10:49 | NUR ---
Spiritual Care visit Pt. is awake and sitting up in bed as she welcomes my visit. Pt. is pleasant and alert. Pt. displays evidence of clear thinking and an active plan to overcome her addiction. Listen theraputically, and verbalize encourgaement. Pt. gifted me with a color pencil drawing. Pastoral care and normalize the pts. post discharge experience. Prayed with Pt. Pt. verbalizes gratitude for the spiritual care received.
--- NOTE | 2022-03-03 17:52 | NUR ---
NO ACUTE EVENTS T/O THE SHIFT. PT HAS NO EXPRESSED ANY SUICIDAL THOUGHTS. OK WITH DR HOANG FOR PT TO DISCHARGE WHEN CLEARED BY DR GUZMAN. PT HAS HAD NO C/O T/O THE SHIFT, MEDICATED TWICE FOR CIWA SCORE OF 4. PT INDEPENDENT IN THE ROOM, USES CALL LIGHT FOR NEEDS, NO CHANGES IN CONDITION. CALL LIGHT IN REACH, WILL CONTINUE TO MONITOR AND GIVE REPORT TO NOC SHIFT RN.
--- NOTE | 2022-03-04 06:11 | NUR ---
SHIFT SUMMARY MED NO TELE STATUS PATIENT ALERT AND ORIENTED, ABLE TO MAKE NEEDS KNOWN TO STAFF. VSS, PATIENT REMAINS ON RA WITH O2 SAT >90%. DENIES CHEST PAIN OR PRESSURE. MEDICATED PER EMAR FOR WITHDRAWL SYMPTOMS. INDEPENDENT IN THE ROOM. NO OTHER SIGNIFICANT CHANGES THIS SHIFT, WILL REPORT TO DAY SHIFT.
[2022-03-04] MEDS ORDERED: MIRT15ST PO (10:58)
[2022-03-04] MEDS ORDERED: MIRALAX17 GM PO (10:59)
[2022-03-04] MEDS ORDERED: VISBIOME 112.51 EACH PO (11:00)
--- NOTE | 2022-03-04 11:15 | NUR ---
PT DISCHARGED HOME IN THE CARE OF HER SIGNIFICANT OTHER. DISCHARGE TEACHING REVIEWED WITH PT INCLUDING MEDICATION LIST, FOLLOW UP CARE, AND EDUCATION MATERIALS. PT VERBALIZES UNDERSTANDING AND HAS NO QUESTIONS OR CONCERNS AT THIS TIME. IV REMOVED, WNL. PT IS AMBULATORY IN ROOM AND DECLINES WHEELCHAIR ASSISTANCE OUT OF BUILDING. ALL BELONGINGS SENT HOME WITH PT. NO FURTHER DISCHARGE NEEDS IDENTIFIED AT THIS TIME.
== END 2022-03-04 11:18 | disposition home or self-care (01) | DRG 897 ==
LOC: ER 14:30 → EOR 14:31 → ERHOLD 02-27 09:47 → PCU 02-27 13:11
PROVIDERS: Emergency Medicine; Family Medicine; Physician Assistant; ADMIT Emergency Medicine
DX: F10.139 Alcohol abuse with withdrawal, unspecified (principal); R45.851 Suicidal ideations; N39.0 Urinary tract infection, site not specified; F33.9 Major depressive disorder, recurrent, unspecified; F17.210 Nicotine dependence, cigarettes, uncomplicated; F12.10 Cannabis abuse, uncomplicated; R44.1 Visual hallucinations; R25.1 Tremor, unspecified; F41.9 Anxiety disorder, unspecified; F10.129 Alcohol abuse with intoxication, unspecified; K59.00 Constipation, unspecified; Z20.822 Contact with and (suspected) exposure to COVID-19; Z88.8 Allergy status to other drugs, medicaments and biological substances; Z79.899 Other long term (current) drug therapy
CPT/HCPCS: 0241U; 36415; 80053; 80069; 80076; 81001; 81025; 82248; 83690; 83735; 84100; 85025; 86592; 87086; 93005; 93010; 94760; 94762; 96361; 96374; 96375; 99285-25; A9270; G0378; G0480; J0696; J1650; J1885; J2060; J2405; J2550; J3411; J3475; J7030; J7040; Q3014

== ENCOUNTER 2022-04-11 09:05 | Emergency (ER) | payer OTHER ==
[~2022-04-11] VITALS: Ht 165.1 cm; Wt 54.4 kg
[~2022-04-11 09:05] MED LIST changes: +HYDHCL25 PO; +MIRALAX17 GM PO; +MIRT15ST PO; +VISBIOME 112.51 EACH PO
[2022-04-11 10:56] LABS: BASOPHILS ABSOLUTE AUTO 0.08 K/mm3 (0.00-0.23); BASOPHILS PERCENT AUTO 1 % (0-2); EOSINOPHILS ABSOLUTE AUTO 0.02 K/mm3 (0.00-0.68); EOSINOPHILS PERCENT AUTO 0 % (0-6); Hematocrit 40.6 % (33.0-51.0); Hemoglobin 13.4 g/dL (11.5-16.0); IMMATURE GRAN ABSOLUTE AUTO 0.06 K/mm3 (0.00-0.10); IMMATURE GRAN PERCENT AUTO 0 % (0-1); LYMPHOCYTES PERCENT AUTO 11 % (21-46); MONOCYTES ABSOLUTE AUTO 0.54 K/mm3 (0.16-1.47); MONOCYTES PERCENT AUTO 4 % (4-13); Mean Corpuscular HGB 31.2 pg (26.0-34.0); Mean Corpuscular Volume 94 fL (80-100); Mean Platelet Volume 8.7 fL (9.1-12.4); NEUTROPHILS ABSOLUTE AUTO 11.82 K/mm3 (1.96-9.15); NEUTROPHILS PERCENT AUTO 84 % (41-73); Platelet Count 396 K/mm3 (150-400); RDW Coefficient Variation 13.2 % (11.7-14.2); RDW Standard Deviation 45.7 fL (35.1-46.3); White Blood Cell Count 14.02 K/mm3 (4.00-11.30)
[2022-04-11 11:12] LABS: Albumin, Blood 4.1 g/dL (3.4-5.0); Albumin/Globulin Ratio 1.2 (0.8-1.8); Bilirubin, Total 0.3 mg/dL (0.1-1.0); Bun/Creatinine Ratio 22.8 (12.0-20.0); Calcium, Blood 9.1 mg/dL (8.5-10.1); Creatinine, Blood 0.57 mg/dL (0.40-1.00); Globulin, Blood 3.5 g/dL (2.2-4.0); Potassium, Blood 4.4 mmol/L (3.5-5.5); Total Protein, Blood 7.6 g/dL (6.4-8.2)
[2022-04-11] MEDS ORDERED: CHLO25 PO (13:39)
== END 2022-04-11 14:25 | disposition home or self-care (01) ==
LOC: ER 09:05
PROVIDERS: Physician Assistant
DX: R00.2 Palpitations (principal); F10.10 Alcohol abuse, uncomplicated; F17.210 Nicotine dependence, cigarettes, uncomplicated; Z88.8 Allergy status to other drugs, medicaments and biological substances; Z79.899 Other long term (current) drug therapy
CPT/HCPCS: 36415; 80053; 85025; G0480; J2060

== ENCOUNTER → 2023-10-08 | Outpatient (CLI) | payer OTHER ==
[~2023-10-08] MED LIST changes: +BACLOFEN5 M1 PO
[2023-10-08 10:42] LABS: BASOPHILS ABSOLUTE AUTO 0.07 K/mm3 (0.00-0.23); BASOPHILS PERCENT AUTO 1 % (0-2); EOSINOPHILS ABSOLUTE AUTO 0.22 K/mm3 (0.00-0.68); EOSINOPHILS PERCENT AUTO 2 % (0-6); Hematocrit 39.1 % (33.0-51.0); Hemoglobin 12.6 g/dL (11.5-16.0); IMMATURE GRAN ABSOLUTE AUTO 0.03 K/mm3 (0.00-0.10); IMMATURE GRAN PERCENT AUTO 0 % (0-1); LYMPHOCYTES PERCENT AUTO 14 % (21-46); MONOCYTES ABSOLUTE AUTO 0.65 K/mm3 (0.16-1.47); MONOCYTES PERCENT AUTO 6 % (4-13); Mean Corpuscular HGB Conc 32.2 g/dL (31.5-36.5); Mean Corpuscular Volume 96 fL (80-100); Mean Platelet Volume 9.1 fL (9.1-12.4); NEUTROPHILS ABSOLUTE AUTO 8.15 K/mm3 (1.96-9.15); NEUTROPHILS PERCENT AUTO 77 % (41-73); Platelet Count 313 K/mm3 (150-400); RDW Standard Deviation 42.3 fL (35.1-46.3); Red Blood Cell Count 4.07 M/mm3 (3.80-5.20); White Blood Cell Count 10.62 K/mm3 (4.00-11.30)
[2023-10-08 11:01] LABS: Albumin, Blood 3.9 g/dL (3.4-5.0); Albumin/Globulin Ratio 1.2 (0.8-1.8); Bilirubin, Total 0.3 mg/dL (0.1-1.0); Bun/Creatinine Ratio 14.1 (12.0-20.0); Creatinine, Blood 0.71 mg/dL (0.40-1.00); Globulin, Blood 3.2 g/dL (2.2-4.0); Potassium, Blood 4.2 mmol/L (3.5-5.5); Thyroid Stimulating Hormone 1.316 uIU/mL (0.360-4.800); Total Protein, Blood 7.1 g/dL (6.4-8.2)
== END | disposition home or self-care (01) ==
LOC: LAB SHORT 10:36 → LAB 10:36
PROVIDERS: Physician Assistant Medical
DX: R53.83 Other fatigue (principal)
CPT/HCPCS: 80053; 84443; 85025

== ENCOUNTER → 2023-10-08 | Outpatient (CLI) | payer OTHER ==
[2023-10-08 17:59] LABS: U Amphetamine Screen Not Detected; U Barbituate Screen Not Detected; U Benzodiazapine Screen Not Detected; U Buprenorphine Screen Not Detected; U Cannabinoids Screen DETECTED; U Cocaine Screen Not Detected; U Methadone Screen Not Detected; U Methamphetamine Screen Not Detected; U Opiates Screen Not Detected; U Oxycodone Screen Not Detected; U Phencyclidine Screen Not Detected
== END | disposition home or self-care (01) ==
LOC: LAB SHORT 15:57 → LAB 15:57
PROVIDERS: Physician Assistant Medical
DX: R56.9 Unspecified convulsions (principal)

== ENCOUNTER → 2023-10-28 | Outpatient (CLI) | payer OTHER | END | disposition home or self-care (01) | LOC: LAB 11:16 → LAB SHORT 11:16 | DX: R30.0 Dysuria (principal) | CPT/HCPCS: 87086 ==

== ENCOUNTER → 2023-10-31 | Outpatient (CLI) | payer OTHER ==
[2023-10-31 08:19] LABS: BASOPHILS ABSOLUTE AUTO 0.04 K/mm3 (0.00-0.23); BASOPHILS PERCENT AUTO 1 % (0-2); EOSINOPHILS ABSOLUTE AUTO 0.13 K/mm3 (0.00-0.68); EOSINOPHILS PERCENT AUTO 2 % (0-6); Hematocrit 42.6 % (33.0-51.0); Hemoglobin 13.9 g/dL (11.5-16.0); IMMATURE GRAN ABSOLUTE AUTO 0.02 K/mm3 (0.00-0.10); IMMATURE GRAN PERCENT AUTO 0 % (0-1); LYMPHOCYTES ABSOLUTE AUTO 1.79 K/mm3 (0.84-5.20); LYMPHOCYTES PERCENT AUTO 22 % (21-46); MONOCYTES ABSOLUTE AUTO 0.96 K/mm3 (0.16-1.47); MONOCYTES PERCENT AUTO 12 % (4-13); Mean Corpuscular HGB 30.7 pg (26.0-34.0); Mean Corpuscular HGB Conc 32.6 g/dL (31.5-36.5); Mean Corpuscular Volume 94 fL (80-100); Mean Platelet Volume 8.7 fL (9.1-12.4); NEUTROPHILS ABSOLUTE AUTO 5.25 K/mm3 (1.96-9.15); NEUTROPHILS PERCENT AUTO 64 % (41-73); Platelet Count 264 K/mm3 (150-400); RDW Coefficient Variation 12.2 % (11.7-14.2); RDW Standard Deviation 42.4 fL (35.1-46.3); Red Blood Cell Count 4.53 M/mm3 (3.80-5.20); White Blood Cell Count 8.19 K/mm3 (4.00-11.30)
[2023-10-31 08:32] LABS: Albumin, Blood 3.6 g/dL (3.4-5.0); Albumin/Globulin Ratio 0.9 (0.8-1.8); Bilirubin, Total 0.2 mg/dL (0.1-1.0); Bun/Creatinine Ratio 10.8 (12.0-20.0); Calcium, Blood 8.9 mg/dL (8.5-10.1); Creatinine, Blood 0.74 mg/dL (0.40-1.00); Globulin, Blood 3.9 g/dL (2.2-4.0); Potassium, Blood 3.5 mmol/L (3.5-5.5); Total Protein, Blood 7.5 g/dL (6.4-8.2)
[2023-10-31 13:26] LABS: Candida Group, PCR NOT DETECTED (NOT DETECT); Candida glabrata-krusei, PCR NOT DETECTED (NOT DETECT)
[2023-10-31 14:44] LABS: Bacterial Vaginosis PCR Positive (NEGATIVE)
[2023-11-02 14:57] LABS: APTIMA MEDIA TYPE Unisex Swab; C. TRACHOMATIS BY TMA Negative (Negative); N. GONORRHOEAE BY TMA Negative (Negative); SPECIMEN SOURCE Vaginal
== END | disposition home or self-care (01) ==
LOC: LAB 08:13 → LAB SHORT 08:13
PROVIDERS: Physician Assistant
DX: N89.8 Other specified noninflammatory disorders of vagina (principal); R10.9 Unspecified abdominal pain
CPT/HCPCS: 80053; 85025; 87481; 87491; 87591; 87661; 87801

== ENCOUNTER 2024-01-14 05:14 | Emergency (ER) | payer OTHER ==
[~2024-01-14] VITALS: Ht 162.6 cm; Wt 51.7 kg
[2024-01-14] MEDS ORDERED: LORazepam 2 MG/ML 1ML Injection ONE (05:37)
[2024-01-14] MEDS ORDERED: levETIRAcetam 750 MG in NS 100 ML IV ONE (05:45)
[2024-01-14] MEDS ORDERED: LORazepam 2 MG/ML 1ML Injection IV ONE (05:45)
[2024-01-14 05:53] LABS: BASOPHILS ABSOLUTE AUTO 0.13 K/mm3 (0.00-0.23); BASOPHILS PERCENT AUTO 1 % (0-2); EOSINOPHILS ABSOLUTE AUTO 0.68 K/mm3 (0.00-0.68); EOSINOPHILS PERCENT AUTO 3 % (0-6); Hematocrit 40.8 % (33.0-51.0); Hemoglobin 13.1 g/dL (11.5-16.0); IMMATURE GRAN ABSOLUTE AUTO 0.08 K/mm3 (0.00-0.10); IMMATURE GRAN PERCENT AUTO 0 % (0-1); LYMPHOCYTES ABSOLUTE AUTO 5.13 K/mm3 (0.84-5.20); LYMPHOCYTES PERCENT AUTO 25 % (21-46); MONOCYTES ABSOLUTE AUTO 1.92 K/mm3 (0.16-1.47); MONOCYTES PERCENT AUTO 10 % (4-13); Mean Corpuscular HGB 30.7 pg (26.0-34.0); Mean Corpuscular HGB Conc 32.1 g/dL (31.5-36.5); Mean Corpuscular Volume 96 fL (80-100); Mean Platelet Volume 9.1 fL (9.1-12.4); NEUTROPHILS ABSOLUTE AUTO 12.31 K/mm3 (1.96-9.15); NEUTROPHILS PERCENT AUTO 61 % (41-73); Platelet Count 359 K/mm3 (150-400); RDW Coefficient Variation 12.3 % (11.7-14.2); RDW Standard Deviation 43.4 fL (35.1-46.3); Red Blood Cell Count 4.27 M/mm3 (3.80-5.20); White Blood Cell Count 20.25 K/mm3 (4.00-11.30)
[2024-01-14 06:11] LABS: Albumin/Globulin Ratio 1.1 (0.8-1.8); Bilirubin, Total 0.2 mg/dL (0.1-1.0); Bun/Creatinine Ratio 14.8 (12.0-20.0); Calcium, Blood 9.7 mg/dL (8.5-10.1); Creatinine, Blood 0.75 mg/dL (0.40-1.00); Globulin, Blood 3.6 g/dL (2.2-4.0); Potassium, Blood 3.9 mmol/L (3.5-5.5); Total Protein, Blood 7.6 g/dL (6.4-8.2)
[2024-01-14] MEDS ORDERED: Ondansetron HCl 2 MG / ML 2ML Vial IV ONE (06:40)
[2024-01-14 06:57] LABS: Base Excess Venous -7.3 mmol/L; Bicarbonate Venous 19.3 mmol/L (24.0-30.0); pH Blood Venous 7.36 (7.34-7.37)
[2024-01-14 07:02] LABS: Calcium, Ionized (POC) 1.23 mmol/L (1.10-1.46); Chloride (POC) 108 mmol/L (98-108); Creatinine (POC) 0.7 mg/dL (0.6-1.0); Glucose (ISTAT POC) 80 mg/dL (70-99); Hemoglobin (POC) 12.9 g/dL (12.0-16.0); Potassium (POC) 4.1 mmol/L (3.5-5.5); Sodium (POC) 142 mmol/L (135-148); Total CO2 (POC) 22 mmol/L (21-32)
[2024-01-14 07:51] LABS: Source, Urine Clean Catch
[2024-01-14 07:55] LABS: Bilirubin, Urine Neg (Neg); Blood, Urine Neg (Neg); Glucose Qualitative, Urine Neg (Neg); Ketones, Urine 1+ (Neg); Leukocyte Esterase, Urine Neg (Neg); Nitrite, Urine Neg (Neg); Protein, Urine 2+ (Neg); Urobilinogen, Urine NORM (Normal)
[2024-01-14 08:59] VITALS: BP 98/65
[2024-01-14 09:02] LABS: Amorphous Light (0-Heavy); Appearance, Urine Hazy (Clear); Bacteria Rare /hpf; Color, Urine Yellow (P-Yellow); Red Blood Cells, Urine 0-2 /hpf (0-2); Squamous Epithelial Cells Few /hpf (Few); White Blood Cells, Urine 0-2 /hpf (0-5)
[2024-01-14] MEDS ORDERED: LEVE500 PO (09:17)
[2024-01-14] MEDS ORDERED: Ketorolac Tromethamine 30mg Vial IV ONE (09:30)
== END 2024-01-14 09:54 | disposition home or self-care (01) ==
LOC: ER 05:14
PROVIDERS: Emergency Medicine; Student in an Organized Health Care Education/Training Program
DX: G40.909 Epilepsy, unspecified, not intractable, without status epilepticus (principal); Z88.8 Allergy status to other drugs, medicaments and biological substances; Z79.899 Other long term (current) drug therapy; Z87.891 Personal history of nicotine dependence
CPT/HCPCS: 70450; 80047; 80053; 81001; 82803; 84703; 85014; 85025; 93005; 93010; 96374; 96375; 99284-25; J1885; J1953; J2060; J2405

== ENCOUNTER 2024-08-17 13:13 | Emergency (ER) | payer OTHER ==
[~2024-08-17] VITALS: Ht 162.6 cm; Wt 52.2 kg
[~2024-08-17 13:13] MED LIST changes: +LEVE500 PO
[2024-08-17 13:31] VITALS: BP 133/84
[2024-08-17] MEDS ORDERED: Acetaminophen 500 MG Tab PO ONE (13:45)
[2024-08-17] MEDS ORDERED: Ibuprofen 600 MG Tab PO ONE (13:45)
[2024-08-17 14:25] LABS: Influenza A, PCR NEGATIVE (NEGATIVE); Influenza B, PCR NEGATIVE (NEGATIVE); Resp Syncytial Virus, PCR NEGATIVE (NEGATIVE); SARS-Cov-2 (COVID-19) PCR, MMC NEGATIVE (NEGATIVE)
== END 2024-08-17 14:40 | disposition home or self-care (01) ==
LOC: ER 13:13
PROVIDERS: Physician Assistant
DX: J06.9 Acute upper respiratory infection, unspecified (principal); Z88.8 Allergy status to other drugs, medicaments and biological substances; Z79.899 Other long term (current) drug therapy; Z87.891 Personal history of nicotine dependence
CPT/HCPCS: 0241U; 99283; A9270

== ENCOUNTER → 2024-08-19 | Outpatient (CLI) | payer OTHER ==
[2024-08-19 14:04] LABS: BASOPHILS ABSOLUTE AUTO 0.07 K/mm3 (0.00-0.23); BASOPHILS PERCENT AUTO 0 % (0-2); EOSINOPHILS PERCENT AUTO 1 % (0-6); Hematocrit 37.4 % (33.0-51.0); Hemoglobin 12.3 g/dL (11.5-16.0); IMMATURE GRAN PERCENT AUTO 0 % (0-1); LYMPHOCYTES ABSOLUTE AUTO 1.89 K/mm3 (0.84-5.20); LYMPHOCYTES PERCENT AUTO 8 % (21-46); MONOCYTES ABSOLUTE AUTO 2.72 K/mm3 (0.16-1.47); MONOCYTES PERCENT AUTO 12 % (4-13); Mean Corpuscular HGB 31.1 pg (26.0-34.0); Mean Corpuscular HGB Conc 32.9 g/dL (31.5-36.5); Mean Corpuscular Volume 94 fL (80-100); Mean Platelet Volume 9.5 fL (9.1-12.4); NEUTROPHILS ABSOLUTE AUTO 17.78 K/mm3 (1.96-9.15); NEUTROPHILS PERCENT AUTO 78 % (41-73); Platelet Count 261 K/mm3 (150-400); RDW Standard Deviation 41.6 fL (35.1-46.3); Red Blood Cell Count 3.96 M/mm3 (3.80-5.20); White Blood Cell Count 22.76 K/mm3 (4.00-11.30)
[2024-08-19 14:39] LABS: Albumin, Blood 3.4 g/dL (3.4-5.0); Albumin/Globulin Ratio 0.9 (0.8-1.8); Bilirubin, Total 0.4 mg/dL (0.1-1.0); Bun/Creatinine Ratio 14.4 (12.0-20.0); Calcium, Blood 9.1 mg/dL (8.5-10.1); Creatinine, Blood 0.49 mg/dL (0.40-1.00); Globulin, Blood 3.7 g/dL (2.2-4.0); Potassium, Blood 3.6 mmol/L (3.5-5.5); Total Protein, Blood 7.1 g/dL (6.4-8.2)
== END | disposition home or self-care (01) ==
LOC: LAB 13:59 → LAB SHORT 13:59
PROVIDERS: Chiropractor
DX: R10.9 Unspecified abdominal pain (principal)
CPT/HCPCS: 80053; 83690; 85025

== ENCOUNTER → 2025-04-29 | Outpatient (CLI) | payer OTHER ==
[2025-04-29 12:30] LABS: Hematocrit 43.2 % (33.0-51.0); Hemoglobin 14.2 g/dL (11.5-16.0); Mean Corpuscular HGB Conc 32.9 g/dL (31.5-36.5); Mean Corpuscular Volume 94 fL (80-100); NRBC ABSOLUTE 0.00 K/mm3 (0.00-0.02); NRBC Auto 0.0 /100 WBC (0.0-0.2); Platelet Count 342 K/mm3 (150-400); RDW Coefficient Variation 12.4 % (11.7-14.2); RDW Standard Deviation 42.9 fL (35.1-46.3)
[2025-04-29 12:46] LABS: BAND PERCENT MAN 2 % (0-8); BASOPHILS ABSOLUTE MAN 0.00 K/mm3 (0.00-0.23); BASOPHILS PERCENT MAN 0 % (0-2); EOSINOPHILS ABSOLUTE MAN 0.07 K/mm3 (0.00-0.68); EOSINOPHILS PERCENT MAN 1 % (0-6); LYMPHOCYTES ABSOLUTE MAN 3.26 K/mm3 (0.84-5.20); LYMPHOCYTES PERCENT MAN 41 % (21-46); MONOCYTES ABSOLUTE MAN 0.87 K/mm3 (0.16-1.47); MONOCYTES PERCENT MAN 11 % (4-13); NEUTROPHILS ABSOLUTE MAN 3.74 K/mm3 (1.96-9.15); SEG NEUTROPHILS PERCENT MAN 45 % (41-73)
[2025-04-29 12:48] LABS: Alanine Aminotransfer (ALT/SGP 25.0 U/L (12-78); Albumin, Blood 4.0 g/dL (3.4-5.0); Albumin/Globulin Ratio 0.9 (0.8-1.8); Anion Gap 16.0 mmol/L (3-11); Aspartate Aminotrans (AST/SGOT 29.0 U/L (12-37); Bilirubin, Total 0.3 mg/dL (0.1-1.0); Blood Urea Nitrogen 4.0 mg/dL (8-24); CO2, Blood 24.0 mmol/L (21-32); Calcium, Blood 9.3 mg/dL (8.5-10.1); Chloride, Blood 105.0 mmol/L (98-108); Creatinine, Blood 0.64 mg/dL (0.40-1.00); Globulin, Blood 4.7 g/dL (2.2-4.0); Glucose, Blood 106.0 mg/dL (70-99); Potassium, Blood 4.1 mmol/L (3.5-5.5); Sodium, Blood 141.0 mmol/L (136-145); Total Protein, Blood 8.7 g/dL (6.4-8.2)
== END | disposition home or self-care (01) ==
LOC: LAB SHORT 12:27
DX: R06.02 Shortness of breath (principal)
CPT/HCPCS: 80053; 85025